=== PATIENT | male | born 1970 | race Caucasian/White ===

== ENCOUNTER → 2016-10-21 | Outpatient (CLI) | payer BC ==
[~2016-10-21] MED LIST: ALBUTEROL20 ml INH; DULERA 100 MCG/13 GM INH; ENBREL50 MG/M1 SQ; FLONASE ALLERG9.9 ML; HYDROCHLOROTH12.5 MG PO; MEDROL DOSEPAK4 MG PO; ZITHROMAX PO; [UNRECOGNIZED DRUG - OTHER] PO
--- NOTE | ~2016-10-21 | US6 ---
[facility] A Service of [facility] RADIOLOGY TEXT RESULTS PATIENT: [facility]IAN [facility]AT [id number] : [birth year] UNIT #: [id number] AGE: [address]: Catherine Kat MD SEX: M ORDER DR: [id number] [facility] [address] [place], [place] [address] [id number] O MR#: [id number] Acc #: [id number] NAME: GIAN BHAT : 1970 SEX: M STUDY DATE/TIME: 10/21/2016 10:40 UNIT: [facility] ROOM: STUDY DESCRIPTION: US Abdominal Limited Attending Physician: Catherine Kat M.D. Referring Physician: Catherine Kat M.D. Ordering Physician: Catherine Kat M.D. Primary Care Physician: aCtherine Kat M.D. MEDICAL IMAGING REPORT This report is preliminary unless electronic signature is present EXAM Right upper quadrant ultrasound, 10/21/2016 HISTORY Abnormally elevated liver enzymes at doctor's appointment 1 week ago. FINDINGS The liver demonstrates an increase in echotexture with attenuation of the ultrasound beam characteristic of fatty infiltration. No cystic or solid mass lesions were seen in the liver. The intra and extrahepatic bile ducts are not dilated. The gallbladder is normal with no evidence of cholelithiasis, wall thickening or pericholecystic fluid. The common duct measures 3.0 mm. The pancreas and right kidney are normal. IMPRESSION Fatty infiltration of the liver. Otherwise negative right upper quadrant ultrasound. Dictated by... Renato Frey M.D. THIS IS AN ELECTRONICALLY VERIFIED REPORT Renato Frey M.D. at 10/22/2016 8:11 AM ARIAN/judit TD: 10/21/2016 13:23 JOB #: [id number] MEDICAL IMAGING REPORT Page 1 of 1 COPY
== END | disposition home or self-care (01) ==
LOC: CGUS 10:14
DX: R74.8 Abnormal levels of other serum enzymes (principal); K76.0 Fatty (change of) liver, not elsewhere classified
CPT/HCPCS: 76705